=== PATIENT | female | born 1985 | race African-American/Black ===

== ENCOUNTER 2018-01-22 08:19 | Emergency (ER) | payer OTHER ==
[~2018-01-22] VITALS: Ht 172.7 cm; Wt 104.3 kg
--- NOTE | ~2018-01-22 | EKG ---
[place] [address] [facility] [place] [address] ELECTROCARDIOGRAM REPORT Name: ARIES DAVIS Room #: DEP Mike#: [id number] Admission: 01/22/18 Attend Phys: Discharge: 01/22/18 Date of : 89 Report #: [id number] THIS REPORT FOR: //name// [facility] ED Test Date: 2018-01-22 Test Time: 08:48:28 Pat Name: ARIES DAVIS Department: Room: Gender: F [employer] C[employer]: Som RIVERA : 1985 Requested By: Nathan Swartz Order Number: [id number] MD: Jesús Jovel Measurements Intervals [place] Rate: 78 P: 11 VA: 131 QRS: 41 QRSD: 102 T: 11 QT: 364 QTc: 415 Interpretive Statements Sinus rhythm ST elev, probable normal early repol pattern No previous ECG available for comparison Electronically Signed On 01-23-2018 12:45:14 CDT by Jesús Jovel [email or web address] <ELECTRONICALLY SIGNED> By: Jesús Jovel MD, [facility] 01/23/18 1245 0848 0848 Jesús Jovel MD, FACC /EPI
[~2018-01-22 08:19] MED LIST: TESSALON PERLE100 MG PO
[2018-01-22 08:52] LABS: HEMATOCRIT 39.4 % (37.0-47.0); MCH 29.4 pg (26.0-34.0); MCHC 33.1 g/dL (28.0-37.0); MCV 88.9 fL (80.0-100.0); PLATELET COUNT 267 thou/uL (150-400); RBC 4.44 mil/uL (4.20-5.00); RDW 13.8 % (10.5-14.5); WBC 5.7 thou/uL (4.0-11.0)
[2018-01-22 08:53] LABS: CALCIUM 9.3 mg/dL (8.5-10.1); CREATININE 0.9 mg/dL (0.6-1.0); POTASSIUM 3.9 mmol/L (3.5-5.1)
[2018-01-22 08:59] LABS: ALBUMIN 3.7 g/dL (3.4-5.0); TOTAL BILIRUBIN 0.4 mg/dL (<0.1-1.0); TOTAL PROTEIN 7.7 g/dL (6.4-8.2)
[2018-01-22 09:44] LABS: ABSOLUTE NEUTROPHILS 2.2 thou/uL (1.4-8.2); PLATELET ESTIMATE NORMAL
[2018-01-22 10:55] VITALS: BP 154/85
== END 2018-01-22 10:58 | disposition home or self-care (01) ==
LOC: ER 08:19
PROVIDERS: Emergency Medicine
DX: M54.9 Dorsalgia, unspecified (principal)

== ENCOUNTER 2018-01-24 15:59 | Emergency (ER) | payer OTHER ==
[~2018-01-24] VITALS: Ht 162.6 cm; Wt 98.9 kg
[2018-01-24] MEDS ORDERED: IBUPROFEN 800800 MG PO (16:37)
[2018-01-24 17:19] VITALS: BP 145/73
== END 2018-01-24 17:21 | disposition home or self-care (01) ==
LOC: ER 15:59
DX: S09.90XA Unspecified injury of head, initial encounter (principal); S39.012A Strain of muscle, fascia and tendon of lower back, initial encounter; V89.2XXA Person injured in unspecified motor-vehicle accident, traffic, initial encounter; Y92.89 Other specified places as the place of occurrence of the external cause; Y93.89 Activity, other specified; Y99.8 Other external cause status